=== PATIENT | female | born 1995 | race Caucasian/White ===

== ENCOUNTER 2017-09-29 12:43 | Inpatient (IN) | payer MEDICAID ==
[2017-09-29] MEDS: LACTATED RINGER'S 1,000 ML IV ×3 (13:48→15:57)
[2017-09-29] MEDS ORDERED: METHYLERGONOVINE 0.2 MG INJ IM ×2 (14:00→20:30)
[2017-09-29] MEDS ORDERED: BUTORPHANOL 2 MG INJ IV (14:00)
[2017-09-29] MEDS ORDERED: CARBOPROST 250 MCG INJ IM ×2 (14:00→20:30)
[2017-09-29] MEDS ORDERED: OXYTOCIN 30 UNITS/LR 500 ML IV ×2 (14:00→20:30)
[2017-09-29] MEDS ORDERED: LIDOCAINE 1% (MPF) 30 ML INJ INJ (14:00)
[2017-09-29] MEDS ORDERED: MISOPROSTOL 200 MCG TAB PR ×2 (14:00→20:30)
[2017-09-29 14:03] LABS: ADD MAN DIFF? NO
[2017-09-29 14:07] LABS: BASOPHILS % 0.4 % (0.0-2.0); EOSINOPHILS # 0.2 10^3/ul (0.0-0.5); EOSINOPHILS % 2.7 % (0.0-7.0); HEMATOCRIT 34.6 % (37.0-47.0); HEMOGLOBIN 11.5 g/dl (12.0-16.0); LYMPHOCYTES # 1.8 10^3/ul (0.8-2.9); LYMPHOCYTES % 22.4 % (15.0-51.0); MEAN CORPUSCULAR HEMOGLOBIN 28.8 pg (29.0-33.0); MEAN CORPUSCULAR HGB CONC 33.2 g/dl (32.0-37.0); MEAN CORPUSCULAR VOLUME 86.5 fl (82.0-101.0); MEAN PLATELET VOLUME 10.6 fl (7.4-10.4); MONOCYTE # 0.5 10^3/ul (0.3-0.9); MONOCYTES % 6.4 % (0.0-11.0); NEUTROPHIL # 5.5 10^3/ul (1.6-7.5); NEUTROPHILS % 67.6 % (39.0-77.0); PLATELET COUNT 261 10^3/UL (140-415); RED CELL DISTRIBUTION WIDTH 13.2 % (11.5-14.5)
[2017-09-29 14:07] LABS: WHITE BLOOD COUNT 8.1 10^3/ul (4.8-10.8)
[2017-09-29 14:27] LABS: INR 0.92; PROTIME 12.4 Sec (11.9-14.9)
[2017-09-29 14:28] LABS: PARTIAL THROMBOPLASTIN TIME 28.1 Sec (25.0-35.0)
[2017-09-29 14:58] LABS: HEPATITIS B SURFACE ANTIGEN NEGATIVE (NEGATIVE)
[2017-09-29 15:04] LABS: RAPID PLASMA REAGIN NONREACTIVE (NR)
[2017-09-29] MEDS ORDERED: ZOLPIDEM 5 MG TAB PO ×2 (15:30→20:30)
[2017-09-29] MEDS ORDERED: NALOXONE (0.4 MG/ML) INJ IV (15:30)
[2017-09-29] MEDS ORDERED: ONDANSETRON 4 MG INJ IV (15:30)
[2017-09-29] MEDS ORDERED: DIPHENHYDRAMINE 50 MG INJ IV (15:30)
[2017-09-29] MEDS ORDERED: KETOROLAC 30 MG INJ IV (15:30)
[2017-09-29] MEDS ORDERED: HYDROmorphONE 0.5 MG/0.5 ML SYG IV ×2 (15:30)
[2017-09-29] MEDS ORDERED: FENTAnyl 2MCG/ML-ROPIV 0.2% 100 ML BAG EPI (15:30)
[2017-09-29] MEDS: OXYTOCIN 30 UNITS/LR 500 ML IV ×3 (16:49→19:18)
[2017-09-29] MEDS: IBUPROFEN 600 MG TAB PO (17:41)
[2017-09-29] MEDS ORDERED: LANOLIN 7 GM TUBE TOP (20:30)
[2017-09-29] MEDS ORDERED: DIBUCAINE 1% 30 GM OINT PR (20:30)
[2017-09-29] MEDS ORDERED: HYDROCODONE/APAP (5/325) TAB PO (20:30)
[2017-09-29] MEDS: CEPHALEXIN 500 MG CAP PO (21:10)
[2017-09-29] MEDS: SENNA/DOCUSATE NA (8.6MG/50MG) TAB PO (21:10)
[2017-09-29] MEDS: MAGNESIUM HYDROXIDE 30ML CUP PO (21:10)
[2017-09-29] MEDS: LACTATED RINGER'S 1,000 ML IV* (21:10)
[2017-09-29] MEDS: WITCH HAZEL/GLYCERIN PAD PR (21:10)
[2017-09-29] MEDS: BENZOCAINE 20% 56 ML SPRAY TOP (21:11)
[2017-09-30] MEDS: CEPHALEXIN 500 MG CAP PO ×4 (00:15→17:28)
[2017-09-30] MEDS: LACTATED RINGER'S 1,000 ML IV* ×3 (04:01→20:01)
[2017-09-30] MEDS: HYDROCODONE/APAP (5/325) TAB PO ×2 (04:36→09:15)
[2017-09-30] MEDS: IBUPROFEN 600 MG TAB PO ×4 (05:35→17:28)
[2017-09-30] MEDS: MAGNESIUM HYDROXIDE 30ML CUP PO ×2 (08:41→20:39)
[2017-09-30] MEDS: SENNA/DOCUSATE NA (8.6MG/50MG) TAB PO ×2 (08:41→20:39)
[2017-09-30 10:18] LABS: ADD MAN DIFF? NO
[2017-09-30 10:20] LABS: WHITE BLOOD COUNT 9.2 10^3/ul (4.8-10.8)
[2017-09-30 10:20] LABS: BASOPHILS % 0.4 % (0.0-2.0); EOSINOPHILS # 0.3 10^3/ul (0.0-0.5); EOSINOPHILS % 3.1 % (0.0-7.0); HEMATOCRIT 32.3 % (37.0-47.0); HEMOGLOBIN 10.7 g/dl (12.0-16.0); LYMPHOCYTES % 32.6 % (15.0-51.0); MEAN CORPUSCULAR HEMOGLOBIN 28.5 pg (29.0-33.0); MEAN CORPUSCULAR HGB CONC 33.1 g/dl (32.0-37.0); MEAN CORPUSCULAR VOLUME 86.1 fl (82.0-101.0); MEAN PLATELET VOLUME 10.4 fl (7.4-10.4); MONOCYTE # 0.6 10^3/ul (0.3-0.9); MONOCYTES % 6.4 % (0.0-11.0); NEUTROPHIL # 5.2 10^3/ul (1.6-7.5); NEUTROPHILS % 57.2 % (39.0-77.0); PLATELET COUNT 213 10^3/UL (140-415); RED BLOOD COUNT 3.75 10^6/ul (4.20-5.40); RED CELL DISTRIBUTION WIDTH 13.5 % (11.5-14.5)
[2017-10-01] MEDS: CEPHALEXIN 500 MG CAP PO ×3 (00:06→11:46)
[2017-10-01] MEDS: IBUPROFEN 600 MG TAB PO ×3 (00:06→11:47)
[2017-10-01] MEDS: LACTATED RINGER'S 1,000 ML IV* (01:48)
[2017-10-01] MEDS: SENNA/DOCUSATE NA (8.6MG/50MG) TAB PO (08:33)
[2017-10-01] MEDS: MAGNESIUM HYDROXIDE 30ML CUP PO (08:33)
[2017-10-01] MEDS: VARICELLA VACCINE LIVE/PF 1,350 UNIT/0.5 ML ML SC* (09:00)
[2017-10-01] MEDS: DIPHTH/TET/ACEL PERTUSS (ADULT) 0.5 ML VIAL IM* (09:00)
[2017-10-01] MEDS: MEASLES,MUMPS,RUBELLA VACCINE INJ SC* (09:00)
== END 2017-10-01 15:17 | disposition home or self-care (01) | DRG 775 ==
LOC: OBT 12:43 → L-D 12:45 → OBT 12:58 → L-D 12:58 → PP1 19:59
PROVIDERS: Obstetrics & Gynecology
PROC: 10E0XZZ Delivery of Products of Conception, External Approach (ICD-10-PCS; principal; 2017-09-29)
DX: O80 Encounter for full-term uncomplicated delivery (principal); Z3A.39 39 weeks gestation of pregnancy; Z37.0 Single live birth
CPT/HCPCS: 62319; 85025; 85610; 85730; 86592; 86850; 86900; 86901; 87340